=== PATIENT | male | born 1965 | race Caucasian/White ===

== ENCOUNTER 2022-01-10 13:21 | Emergency (ER) | payer MEDICAID ==
[~2022-01-10] VITALS: Ht 177.8 cm; Wt 97.5 kg
[2022-01-10 14:01] LABS: BASO % 0.6 % (0.0-1.0); EOS # 0.2 10*3/uL (0.0-0.4); EOS % 4.3 % (1.0-4.0); HEMATOCRIT 40.3 % (42.0-52.0); LYMPH # 1.5 10*3/uL (1.3-4.4); LYMPH % 26.9 % (27.0-41.0); MEAN CELL VOLUME 92.2 fl (80.0-94.0); MEAN CORPUSCULAR HGB 32.7 pg (27.0-31.0); MEAN CORPUSCULAR HGB CONC 35.5 g/dl (33.0-37.0); MEAN PLATELET VOLUME 10.4 fl (9.6-12.3); MONO # 0.6 10*3/uL (0.1-1.0); MONO % 10.2 % (3.0-9.0); NEUT # 3.1 10*3/uL (2.3-7.9); NEUT % 57.6 % (47.0-73.0); PLATELET COUNT AUTOMATED 153 10*3/uL (130-400); RED BLOOD COUNT 4.37 10*6/uL (4.50-5.90); RED CELL DISTRI WIDTH 11.9 % (0-14.5); WHITE BLOOD COUNT 5.4 10*3/uL (4.8-10.8)
[2022-01-10 14:14] LABS: ACT PARTIAL THROMBO TIME 24.5 SECONDS (20.0-32.1)
[2022-01-10] MEDS ORDERED: GABAPENTIN100 M2 PO (14:14)
[2022-01-10] MEDS ORDERED: DULOXETINE HCL60 MG PO (14:15)
[2022-01-10] MEDS ORDERED: ATORVASTATIN CA40 M1 PO (14:16)
[2022-01-10] MEDS ORDERED: OMEPRAZOLE MAGN20 MG PO (14:17)
[2022-01-10] MEDS ORDERED: METOPROLOL TAR100 M1 PO (14:17)
[2022-01-10] MEDS ORDERED: HYDROCHLOROTHIA25 M1 PO (14:17)
[2022-01-10 14:18] LABS: ALKALINE PHOSPHATASE 41 U/L (45-117); BUN 15 mg/dl (7-24); CHLORIDE 107 mmol/L (98-107); CREATININE 0.82 mg/dL (0.70-1.30); LIPASE 318 U/L (73-393); POTASSIUM 4.2 mmol/L (3.5-5.1); SGOT/AST 15 IU/L (3-35); SGPT/ALT 32 U/L (12-78); SODIUM 137 mmol/L (136-145); TOTAL PROTEIN 6.2 gm/dL (6.4-8.2)
[2022-01-10] MEDS ORDERED: HUMALOG100 UNIT/1 SC (14:19)
[2022-01-10] MEDS ORDERED: LANTUS SOL100 UNIT/1 SC (14:20)
[2022-01-10 14:51] LABS: BILIRUBIN Negative (Negative); BLOOD Negative (Negative); CLARITY Clear (Clear); COLOR Yellow (Yellow); GLUCOSE 3+ (Negative); KETONE Negative (Negative); LEUKO ESTERASE Negative (Negative); NITRITE Negative (Negative); PH 6.5 (4.5-8.0); SPECIFIC GRAVITY >= 1.030 (1.001-1.030); UROBILINOGEN 0.2 E.U./dl (0.0-1.0)
[2022-01-10 15:09] LABS: BACTERIA TRACE; RBC 0-2 rbc/hpf (0-2)
== END 2022-01-10 16:51 | disposition home or self-care (01) ==
LOC: ED 13:21
PROVIDERS: Emergency Medicine
DX: E11.65 Type 2 diabetes mellitus with hyperglycemia (principal); Z79.899 Other long term (current) drug therapy